=== PATIENT | male | born 1945 | race Two or more races ===

== ENCOUNTER → 2020-09-11 | Outpatient (CLI) | payer MEDICARE, MEDICAID ==
[~2020-09-11] MED LIST: BUSP15TA PO; GABA800T5 PO; HYDR-2995 PO; INSU100I13 INJ; SITA100T PO; TAMS-11 PO
== END | disposition home or self-care (01) ==
LOC: STAR 08:11
PROVIDERS: ATTEND Urology
DX: Z01.812 Encounter for preprocedural laboratory examination (principal); Z20.822 Contact with and (suspected) exposure to COVID-19; C66.9 Malignant neoplasm of unspecified ureter; R94.31 Abnormal electrocardiogram [ECG] [EKG]
CPT/HCPCS: 36415; 71046; 83036; 93005; U0003; U0005

== ENCOUNTER 2020-09-19 08:55 | Emergency (ER) | payer MEDICARE, MEDICAID ==
[~2020-09-19] VITALS: Ht 170.2 cm; Wt 80.4 kg
[~2020-09-19 08:55] MED LIST changes: +OXYC5TAB98 PO
--- NOTE | 2020-09-19 09:30 | NUR ---
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
--- NOTE | 2020-09-19 10:03 | NUR ---
PT HAS SURGERY ON 09/15, NEPHRECTOMY. WHARTON PLACED, STATES URINE IS BACKING UP AND LEAKING. PT TO ROOM WITH STEADY GAIT. POSTIONED TO COMFORT ON BED. ATTACHED TO MONITORS. SESARBerta ARCELIA. SON AT BEDSIDE ACTING ELEVATOR SERVICE TECHNICIAN AND HISTORIAN. WHARTON CLEANSED WITH THERAWORXS, WHARTON BAG CHANGED, UA OBTAINED FROM CATH MID BAG CHANGE TO AVOID CONTAIMINATS FROM OLD BAG. URINE CLEAR LIGHT YELLOW NO SEDIMENT. WHARTON IRRIGATED WITH 60 ML OF SERITLE WATER PER DR. CATALAN. DRAINAGE TO WHARTON BAG APPROPIRATE. NO LEAKAGE OBSERVED. DR. CATALAN EVALUATED.
[2020-09-19 10:12] LABS: BASOPHILS % (AUTO) 0 % (0-1); EOSINOPHILS % (AUTO) 1 % (1-7); LYMPHOCYTES % (AUTO) 11 % (22-44); MEAN CORPUSCULAR HEMOGLOBIN 24.3 pg (27.5-34.5); MEAN CORPUSCULAR HGB CONC 32.7 g/dL (33.2-36.2); MEAN PLATELET VOLUME 7.4 fL (7.4-10.4); MONOCYTES % (AUTO) 3 % (2-9); NEUTROPHILS % (AUTO) 85 % (42-75); PLATELET COUNT 277 x10^3/uL (130-400); RED BLOOD COUNT 4.67 x10^6/uL (4.38-5.82); RED CELL DISTRIBUTION WIDTH 17.5 % (9.4-14.8)
[2020-09-19 10:13] LABS: MD NO
[2020-09-19 10:22] LABS: ALBUMIN 3.3 g/dL (3.4-5.0); ANION GAP 3 mmol/L (5-15); CALCIUM 8.8 mg/dL (8.5-10.1); CHLORIDE 103 mmol/L (98-107)
[2020-09-19 10:22] LABS: MICROSCOPIC AUTO
[2020-09-19 10:26] LABS: ALANINE AMINOTRANSFERASE 31 U/L (12-78); ALKALINE PHOSPHATASE 71 U/L (45-117); BILIRUBIN,TOTAL 0.8 mg/dL (0.2-1.0); CREATININE 1.43 mg/dL (0.7-1.3); TOTAL PROTEIN 7.4 g/dL (6.4-8.2)
[2020-09-19 11:04] VITALS: BP 158/77
--- NOTE | 2020-09-19 11:04 | NUR ---
PT RESTING IN BED. NADN AND VSS. SON AT BEDSIDE. WHARTON HAS DRAINED APPROX 200 ML OF CLEAR YELLOW URINE IN PAST HOUR. NO DRAINAGE FROM PENIS.
--- NOTE | 2020-09-19 11:48 | NUR ---
Patient given discharge instructions and they have confirmed that they understand the instructions. Patient ambulatory with steady gait.
== END 2020-09-19 11:49 | disposition home or self-care (01) ==
LOC: ED 10:14
DX: T83.021A Displacement of indwelling urethral catheter, initial encounter (principal); E11.9 Type 2 diabetes mellitus without complications; Z87.891 Personal history of nicotine dependence
CPT/HCPCS: 36415; 80053; 81001; 85025; 87086; 99283